=== PATIENT | female | born 1945 | race Caucasian/White ===

== ENCOUNTER → 2017-04-06 | Outpatient (CLI) | payer OTHER ==
[~2017-04-06] MED LIST: ALLOPURINOL 30300 M1 PO; ATENOLOL 25 MG25 M1 PO; BAYER WOMEN'S1 EACH PO; BETA CAROTENE1 GM; CALCIUM CITRAT250 MG PO; CHLORTHALIDONE25 MG PO; CINNAMON PO; IBUPROFEN 800800 M1 PO; LORTAB 5 MG/5001 TA1 PO; MULTIVITAMINS1 EAC7 PO; NASAL SPRAY30 ML NS; OMEGA 3-6-9 CO1 EACH PO; OSTEO BI-FLEX1 EAC1 PO; PATANOL EYE DROPS; SENNA PO; SYNTHROID150 MCG PO; TURMERIC500 MG; VITAMIN E400 UNI6 PO
== END ==
LOC: M.RAD 12:32
DX: R05 Cough (principal); I70.0 Atherosclerosis of aorta

== ENCOUNTER 2018-09-20 09:20 | Inpatient (IN) | payer OTHER ==
[~2018-09-20] VITALS: Ht 157.5 cm; Wt 72.6 kg
[~2018-09-20 09:20] MED LIST changes: -OMEGA 3-6-9 CO1 EACH PO; +OMEGA 3-6-9 CO400 MG PO
[2018-09-20 09:27] VITALS: BP 159/73
[2018-09-20 09:45] LABS: ABSOLUTE BASOPHILS 0.1 thou/uL (0.0-0.2); ABSOLUTE EOSINOPHILS 0.3 thou/uL (0.0-0.7); ABSOLUTE LYMPHOCYTES 2.9 thou/uL (0.8-5.3); ABSOLUTE MONOCYTES 0.7 thou/uL (0.0-1.2); ABSOLUTE NEUTROPHILS 6.1 thou/uL (1.6-8.1); BASOPHILS 1.1 %; EOSINOPHILS 2.6 %; HEMATOCRIT 41.4 % (37.0-47.0); HEMOGLOBIN 14.4 gm/dL (12.0-15.0); LYMPHOCYTES 28.7 %; MCH 29.6 pg (26.0-34.0); MCHC 34.7 g/dL (28.0-37.0); MCV 85.3 fL (80.0-100.0); MONOCYTES 6.6 %; MPV 9.8 fl. (7.2-11.1); NUCLEATED RBCS 0 /100WBC; PLATELET COUNT* 258 thou/uL (150-400); RBC 4.86 mil/uL (4.20-5.00); RDW-CV 14.2 % (10.5-14.5)
[2018-09-20 10:01] LABS: ANION GAP 9 mmol/L (7-16); BUN 17 mg/dL (7-18); CALCIUM 8.9 mg/dL (8.5-10.1); CHLORIDE 102 mmol/L (98-107); CO2 29 mmol/L (21-32); CREATININE 0.9 mg/dL (0.6-1.3); GLUCOSE 123 mg/dL (70-99); POTASSIUM 3.3 mmol/L (3.5-5.1); SODIUM 140 mmol/L (136-145)
[2018-09-20 10:11] LABS: ALBUMIN 3.5 g/dL (3.4-5.0); ALKALINE PHOSPHATASE 78 U/L (46-116); LIPASE 119 U/L (73-393); MAGNESIUM 1.5 mg/dL (1.8-2.4); NT-PRO BRAIN NAT PEPTIDE 230 pg/mL (<300); SGOT 23 U/L (15-37); SGPT 29 U/L (30-65); TOTAL BILIRUBIN 0.4 mg/dL (<0.1-1.0); TOTAL PROTEIN 7.5 g/dL (6.4-8.2); TROPONIN-I LEVEL <0.06 ng/mL (<0.06)
[2018-09-20 11:11] VITALS: BP 119/66
[2018-09-20 11:35] VITALS: BP 118/65
[2018-09-20 11:51] LABS: CHOLESTEROL 194 mg/dL (<200); HDL CHOLESTEROL 57 mg/dL (>40); LDL CHOLESTEROL 116 mg/dL (<100); SERUM ASSESSMENT Clear; TC:HDL 3.4 Ratio (Not establshd); TRIGLYCERIDE 106 mg/dL (<150); VLDL 21 mg/dL (<40)
[2018-09-20] MEDS ORDERED: PRILOSEC OTC20 MG PO (12:42)
[2018-09-20] MEDS ORDERED: POTASSIUM20 PO (12:42)
[2018-09-20] MEDS ORDERED: FLONASE 0.05%50 MCG NASAL (12:44)
[2018-09-20] MEDS ORDERED: PATANOL5 ML OPHTHALMIC (12:45)
[2018-09-20] MEDS ORDERED: PROBIOTIC1 EAC1 PO (12:46)
--- NOTE | 2018-09-20 15:49 | EKG ---
[place] [address] ELECTROCARDIOGRAM REPORT Name: JAS DU Room: [address] ADM IN .R.#: [id number] Admission: 09/20/18 Attend Phys: Aaron Marie MD Discharge: Date of : 49 Report #: [id number] THIS REPORT FOR: //name// [facility] ED Test Date: 2018-09-20 Test Time: 09:31:44 Pat Name: JAS DU Department: Room: [facility] Gender: F [employer] Supervisor: VASILIY : 1945 Requested By: Garry Rose Order Number: [id number] MD: Doug Lyon Measurements Intervals [place] Rate: 62 P: 50 MI: 203 QRS: -1 QRSD: 125 T: 19 QT: 447 QTc: 454 Interpretive Statements Sinus rhythm poor r waved progression artifact noted Nonspecific intraventricular conduction delay Compared to ECG 11/06/2005 08:33:31 Intraventricular conduction delay now present Sinus bradycardia no longer present Electronically Signed On 09-20-2018 15:49:17 CDT by Doug Lyon [email or web address] <ELECTRONICALLY SIGNED> By: Doug Lyon MD, [facility] 09/20/18 1549 0931 Doug Lyon MD, [facility] /EPI
[2018-09-20 16:43] VITALS: BP 155/74
[2018-09-20 20:35] VITALS: BP 152/73
[2018-09-21 00:32] VITALS: BP 130/59
[2018-09-21 05:13] VITALS: BP 137/50
[2018-09-21 05:20] LABS: CALCIUM 8.8 mg/dL (8.5-10.1); CREATININE 0.9 mg/dL (0.6-1.3); MAGNESIUM 1.7 mg/dL (1.8-2.4); POTASSIUM 3.1 mmol/L (3.5-5.1)
[2018-09-21 08:00] VITALS: BP 133/54
[2018-09-21] MEDS ORDERED: OMEPRAZOLE40 MG PO (09:13)
--- NOTE | 2018-09-21 14:22 | CARDNUC ---
[place] [address] CARDIAC NUCLEAR IMAGING REPORT Name: JAS DU Room: [address] IN [facility]#: [id number] Admission: 09/20/18 Attend Phys: Aaron Marie, Discharge: Date of : 49 Date of Service: 09/21/18 1422 Report #: [id number] THIS REPORT FOR: //name// APPROVED REPORT Study performed: 09/21/2018 10:39:11 Exam: Nuclear Stress Test Indication: Abdominal/Sternal pain, Nausea, Diaphoretic. Patient Location: In-Patient Room #: 209 Stress Tech: Moni Calvo Stress Nurse: Gretta Humphrey R.N. NM Tech:GONZALO Hodges Ht: 5 ft 2 in Wt: 170 lbs BSA: 1.78 m2 BMI: 31.09 Medical History Medical History: HTN, Hyperlipidemia, Obesity , Second hand smoke exposure, Abdominal - Sternal pain, Nausea, Diaphoretic. Medications: Atenolol, NTG, ASA 325 MG, Chlorthalidone. Allergies: Azithromycin, Codeine, Erythromycin Base. Cardiac Risk Factors: Age, FHX of CAD, HTN, Hyperlipidemia, Second hand smoke exposure. Previous Cardiac Procedures: None Pretest Chest Pain Characteristics: No chest pain Exercise History: Indeterminate Physical Disabilities: Generalized fatigue, back pain. Meds Held (24 hrs): NTG, Atenolol. Stress Test Details Stress Test: Pharmacologic stress testing performed using 0.4 mg of regadenoson per 5 mL given IV over 10 seconds. Reason for pharmacologic stress test: Generalized fatigue, back pain.. HR Resting HR: 72 bpm Max Heart Rate (APMHR): 150 bpm Max HR Achieved: 97 bpm Target HR (85% APMHR): 127 bpm % of APMHR: 64 Recovery HR: 85 bpm BP Resting BP: 137/70 mmHg Max BP: 118/62 [place] [address] CARDIAC NUCLEAR IMAGING REPORT Name: JAS DU Gregg Room: [address]#: [id number] Admission: 09/20/18 Attend Phys: Aaron Marie, Discharge: Date of : 49 Date of Service: 09/21/18 1422 Report #: [id number] Resting ECG: Sinus Rhythm, normal EKG Stress ECG: Sinus Rhythm ST Change: None Arrhythmia: None Recovery ECG: Sinus Rhythm Recovery ST Change: None Recovery Arrhythmia: None Clinical The patient tolerated Lexiscan infusion without significant cardiac symptoms. Nurse Comments 72 year old female inpatient presented with recent c/o abdominal/sternal pain associated with Diaphoresis. Patient tolerated sitting Lexiscan well. Recovery unremarkable with PO caffeine, effective. Patient was escorted via wheelchair by staff to Nuclear Medicine for images. Patient was stable with no complaints at that time. Stress ECG Conclusion The baseline 12-lead EKG shows sinus rhythm with no skin ST or T wave abnormality. EKGs obtained during and post Lexiscan infusion show sinus rhythm with no significant ST or T wave changes when compared to baseline. There were no stress-induced arrhythmias. NM EXAM: Myocardial Perfusion REST/STRESS Imaging Protocol: Rest Tc-99m/Stress Tc-99m 1 day Resting Data Rest SPECT myocardial perfusion imaging was performed in supine position 30 minutes following the intravenous injection of 11.4 mCi of Tc-99m Sestamibi. Time of rest injection: 0900 Date: 09/21/2018 The images were gated to evaluate regional wall motion and calculate left ventricular ejection fraction. Administration Route: IV Administration Site: Right AC Pharmacologic Stress Pharmacologic stress test was performed by injecting Regadenoson 0.4 mg IV push followed by the intravenous injection of 31.3 mCi of Tc-99m Sestamibi. Time of stress injection: 1105 Date: 09/21/2018 [place] [address] CARDIAC NUCLEAR IMAGING REPORT Name: JAS DU Room: [address] IN M.R.#: [id number] Admission: 09/20/18 Attend Phys: Aaron Marie, Discharge: Date of : 49 Date of Service: 09/21/18 1422 Report #: [id number] Administration Route: IV Administration Site: Right AC Gated Stress SPECT was performed 40 minutes after stress injection. The images were gated to evaluate regional wall motion and calculate left ventricular ejection fraction. Prone imaging was performed. Study Quality Study: Good Artifact: No artifact Study Data At rest, the left ventricular ejection fraction was 84%.. Post stress, the left ventricular ejection was 86%.. TID = 1.07. Perfusion Normal left ventricular perfusion. Wall Motion Normal left ventricular wall motion. Nuclear Conclusion ECG Findings: negative for ischemia Clinical Findings: negative for ischemia Nuclear Findings: negative for ischemia Exercise Capacity: not assessed Left Ventricular Function: normal Risk Study: low Myocardial perfusion images show no defect to suggest infarct or ischemia. Left ventricular systolic function appears normal on gated studies. This is a low risk study. <Conclusion> The baseline 12-lead EKG shows sinus rhythm with no skin ST or T wave abnormality. EKGs obtained during and post Lexiscan infusion show sinus rhythm with no significant ST or T wave changes when compared to baseline. There were no stress-induced arrhythmias. <ELECTRONICALLY SIGNED> By: Mayank Wilson MD, FACC 09/21/18 1422 1422 1422 Mayank Wilson MD, FACC /INF
[2018-09-21 15:43] VITALS: BP 133/54
== END 2018-09-21 17:30 | disposition home or self-care (01) | DRG 392 ==
LOC: M.ERS 09:20 → M.TBA-ER 10:44 → M.2W 10:44
PROVIDERS: Emergency Medicine Emergency Medical Services; ADMIT Internal Medicine
DX: K21.9 Gastro-esophageal reflux disease without esophagitis (principal); I25.110 Atherosclerotic heart disease of native coronary artery with unstable angina pectoris; E89.0 Postprocedural hypothyroidism; I10 Essential (primary) hypertension; E87.6 Hypokalemia; E83.42 Hypomagnesemia; E78.5 Hyperlipidemia, unspecified; Z96.653 Presence of artificial knee joint, bilateral; Z90.710 Acquired absence of both cervix and uterus; Z79.899 Other long term (current) drug therapy; Z88.1 Allergy status to other antibiotic agents; Z88.5 Allergy status to narcotic agent; Z82.49 Family history of ischemic heart disease and other diseases of the circulatory system

== ENCOUNTER → 2019-03-23 | Outpatient (CLI) | payer MEDICARE ==
[~2019-03-23] MED LIST changes: +FLONASE 0.05%50 MCG NASAL; +OMEPRAZOLE40 MG PO; +PATANOL5 ML OPHTHALMIC; +POTASSIUM20 PO; +PRILOSEC OTC20 MG PO; +PROBIOTIC1 EAC1 PO
--- NOTE | ~2019-03-23 | PF ---
[address] [address] PULMONARY FUNCTION REPORT Name: JAS DU Room: [facility]#: [id number] Admission: 03/23/19 Attend Phys: Jesusita Espinosa MD Discharge: Date of : 49 Report #: [id number] THIS REPORT FOR: //name// CC: Jesusita Espinosa DATE OF SERVICE: 03/28/2019 DATA: Forced vital capacity is 2.88, 107% predicted. FEV1 is 2.43, 120% predicted. FEV1/FVC ratio is 85. Total lung capacity is 4.30, 94% predicted. Diffusion capacity is 16.2, 82% predicted. IMPRESSION: Normal spirometry. No significant airflow limitation. No significant post-bronchodilator effect. Normal lung volumes, normal diffusion capacity. By: 1440 [id number] Tejeda MD /keagan
== END ==
LOC: M.PUL 09:53
DX: R05 Cough (principal); R06.02 Shortness of breath